=== PATIENT | female | born 1955 | race Caucasian/White ===

== ENCOUNTER → 2016-12-24 | Outpatient (CLI) | payer OTHER ==
--- NOTE | 2016-12-24 12:04 | WWHP ---
DATE OF SERVICE: 12/24/2016 CHIEF COMPLAINT: The patient is here for her routine gynecologic exam and mammogram. HPI: This is a 61-year-old G3, P3 with an LMP of 1998 who is status post vaginal hysterectomy for benign reasons. The patient is without gynecologic complaints. She states she has noticed a slight bulging area above the xiphoid process and epigastric region. She states it is not painful. She has noticed it for about 1 to 2 months. She states it can be roundish and looks like a small pear when she looks in the mirror when she is upright. She is otherwise without complaints. PAST MEDICAL HISTORY: Chronic hypertension, irritable bowel syndrome, gastroesophageal reflux disease, hiatal hernia, osteoporosis, status post 5 years of Fosamax. She is also seen for chronic neck and back problems. Dr. Velázquez is her primary care physician. MEDICATIONS: 1. [place] 10/325 mg q.i.d. p.r.n. 2. Norvasc 5 mg daily. 3. Bentyl 10 mg b.i.d. 4. Prevacid 15 mg daily. 5. Calcium supplement with vitamin D 600 mg b.i.d. 6. Hydrochlorothiazide 50 mg daily. 7. Antivert 25 mg t.i.d. p.r.n. 8. Atorvastatin 20 mg daily. 9. Anaprox 275 mg 2 p.r.n. Allergies to PENICILLIN, MOTRIN and BACTRIM; all of which caused rashes. Past surgical and TURNER OFF histories are unchanged from the 2014 H&P. FAMILY HISTORY: Father had throat, lung and brain cancer. Brother was diagnosed with lung cancer. Mother had diabetes, CVA, RI and skin cancer. Grandmother had heart disease. REVIEW OF SYSTEMS: Weight has been stable. She denies respiratory, cardiac, or GI problems. PHYSICAL EXAM: Blood pressure 125/79. Height 5 feet 5 inches. Weight 167 pounds. Temperature 98.3, pulse 90. This is a well-developed, well-nourished white female who is alert and oriented x3 in no acute distress. HEENT is within normal limits. NECK: Supple without mass or thyromegaly. CHEST AND LUNGS: Clear to auscultation. HEART: Regular rate and rhythm. CHEST AND LUNGS: Clear to auscultation. There is palpable invisible lipoma at the area of the xiphoid process. This is soft, smooth and regular. There does not seem to be any masses below pushing this tissue upward. This measures approximately 5 x 4 cm. HEART: Regular rate and rhythm. Breasts are without mass or discharge. Axillary exam is negative for adenopathy. BACK: Negative for CVA tenderness. ABDOMEN: Soft, nontender, without palpable masses. The lipoma is noted as above. PELVIC EXAM: External genitalia reveals mild to moderate atrophy without lesions. Vagina reveals mild to moderate atrophy without lesions. There is no evidence of prolapse. Bimanual exam is negative for mass or tenderness. Rectovaginal exam is negative for mass or tenderness and is negative for occult blood. EXTREMITIES: Nontender. IMPRESSION: 1. A 61-year-old menopausal female, status post vaginal hysterectomy for benign reasons. 2. Benign-appearing lipoma in the epigastric region over the area of the xiphoid process. 3. History of osteoporosis, status post Fosamax use 5 or more years. PLAN: 1. Pap smears have been discontinued. 2. Self breast examination was discussed. 3. Mammogram will be done today. 4. Colonoscopy was recommended since she believes she was told by Dr. Al to have it done after 5 years ago so she is due for this. 5. Osteoporosis management was discussed. We will plan on redoing the bone density testing and an order slip was given to patient for this. 6. She will return in one year.
--- NOTE | 2016-12-25 11:34 | MM ---
Reason for exam: screening (asymptomatic). Last mammogram was performed 2 years and 2 months ago. History: Patient is postmenopausal. Benign US right guided mammotome of the right breast, May 09, 2008. Physical Findings: A clinical breast exam by your physician is recommended on an annual basis and results should be correlated with mammographic findings. MG Screening Mammo w CAD Bilateral CC and MLO view(s) were taken. Prior study comparison: October 11, 2014, bilateral MG screening mammo w CAD. April 18, 2009, bilateral digital screening mammogram. There are scattered fibroglandular densities. No significant changes when compared with prior studies. ASSESSMENT: Negative, BI-RAD 1 RECOMMENDATION: Routine screening mammogram of both breasts in 1 year.
== END | disposition home or self-care (01) ==
LOC: WWCWWP 09:49
PROVIDERS: ATTEND Obstetrics & Gynecology
DX: Z12.31 Encounter for screening mammogram for malignant neoplasm of breast (principal)

== ENCOUNTER → 2016-12-29 | Outpatient (CLI) | payer OTHER ==
--- NOTE | 2016-12-29 12:14 | BD ---
EXAMINATION TYPE: MG DEXA axial skeleton. DATE OF EXAM: 12/29/2016 9:33 AM COMPARISON: 11.06.2014 CLINICAL HISTORY: z78.0 post menopausal Height: 63.5 Weight: 166 FRAX RISK QUESTIONS: Alcohol (3 or more units per day): NO Family History (Parent hip fracture): NO Glucocorticoids (More than 3mos): NO (Ex: prednisone, prednisolone, methylprednisolone, dexamethasone, and hydrocortisone). History of Fracture in Adulthood: NO Secondary Osteoporosis: NO 1. Type 1 Diabetes: NO 2. Hyperthyroidism: NO 3. Menopause before 45: AT AGE 46 4. Malnutrition: NO 5. Chronic liver disease: NO Rheumatoid Arthritis: NO Current Tobacco Use: YES RISK FACTORS HISTORY OF: Surgery to Spine LUMBAR FUSION AND SCRAPING OF BONE When: 4 YRS AGO Other Fractures since Age 50: NOTHING OVER 50 YRS OLD Family History of Osteoporosis: NONE KNOWN Smoke tobacco: YES, 1 PAC DAILY Drink Alcohol: NO Active: NO Diet low in dairy products/other sources of calcium: YES Postmenopausal woman: HYST AT AGE 46 YRS OLD Adrenal Insufficiency: NO MEDICATIONS: Osteoporosis Medications: STOPPED FOSAMAX 2 YRS AGO Additional Medications: BP MEDS, CALCIUM WITH D Additional History: NONE TO NOTE EXAM MEASUREMENTS: Bone mineral densitometry was performed using the [employer] System. SPINE NOT DONE.....SURGERY TO LUMBAR SPINE 4 YRS AGO Bone mineral density about the R hip (g/cm2): 0.872 Bone mineral density about the L hip (g/cm2): 0.827 T Score values are as follows: -----R Neck: -1.2 -----L Neck: -1.5 -----R Intertrochanter: -1.8 -----L Intertrochanter: -1.3 Bone mineral density has: Decreased -0.8% since study of: 11.06.2014 FRAX %'S: FOR MAJOR OSTEOPOROTIC FX: 8.2%....... FOR HIP FX: 1.2%.......PROBABILITY OF FX IN 10 YRS TIME IMPRESSION: Osteopenia (T Score between -2.5 and -1 as noted by T score values There is slightly increased risk of fracture and the patient may be considered for treatment. Re-Screen 1-2 years. FOR BOTH OF HER HIPS NOTE: T-SCORE=SD OF THE YOUNG ADULT MEAN.
== END | disposition home or self-care (01) ==
LOC: RADBDWWP 09:06
PROVIDERS: ATTEND Obstetrics & Gynecology
DX: M85.852 Other specified disorders of bone density and structure, left thigh (principal); M85.851 Other specified disorders of bone density and structure, right thigh; Z78.0 Asymptomatic menopausal state
CPT/HCPCS: 77080

== ENCOUNTER 2017-03-24 07:21 | Day surgery (SDC) | payer OTHER ==
[2017-03-20 14:32] VITALS: BMI 29.2
[~2017-03-24 07:21] MED LIST: LACTATED RINGERS 1,000 ML IV SCH; LIDOCAINE 1% 20 ML VIAL (10MG/ML) FOR IV START INTRADERMA PRN
[2017-03-24 07:45] VITALS: TEMP 97.8
[2017-03-24] MEDS ORDERED: PROPOFOL 10 MG/ML 20 ML VIAL IV ONE (08:08)
[2017-03-24] MEDS ORDERED: LIDOCAINE 1% INJ 10MG/ML (20 ML MDV) ONE (08:08)
--- NOTE | 2017-03-24 08:40 | P.OP ---
Date of Procedure: 03/24/17 Preoperative Diagnosis: Prior history: Polyp, history of GERD Postoperative Diagnosis: Tortuous sigmoid colon, diverticuli, probable hyperplastic rectal polyp, biopsy obtained, internal hemorrhoids Procedure(s) Performed: Colonoscopy Anesthesia: MAC Surgeon: Kristen Al Estimated Blood Loss (ml): 0 IV fluids (ml): 300 Pathology: other (rectal biopsy) Condition: stable Disposition: PACU Indications for Procedure: prior history of colon polyp Operative Findings: Internal hemorrhoids, tortuous sigmoid colon, sigmoid diverticuli, probable hyperplastic changes in rectum cold biopsy obtained Description of Procedure: Patient was taken to the endoscopy suite and following sedation rectal exam was performed. Patient was noted to have good sphincter tone no masses. Colonoscope was passed through the anus into the rectum. At approximately 20 cm there was sharp angulation and with careful manipulation we were able to pass the scope beyond this point. The patient was noted to have moderate to extensive sigmoid diverticuli. The scope was advanced to the splenic flexure through the transverse colon hepatic flexure right colon down to the area of the cecum. Approximately 6 minutes were taken to withdraw the scope from the cecum to the rectum. No mucosal lesions of concern were noted in the cecum or right colon. No mucosal lesions of concern were noted in the transverse colon. In the sigmoid and left colon moderate to extensive diverticuli were identified. The scope was brought down into the rectum where it appeared to be some hyperplastic changes were noted in the cold biopsy was obtained. No polypoid lesions of concern were identified. The scope was retroflexed in the rectum and internal hemorrhoids were identified Impression/plan: 1. Tortuous sigmoid colon 2. Sigmoid diverticuli 3. Internal hemorrhoids 4. Probable hyperplastic changes in the rectum biopsy obtained Plan: Conservative management of diverticuli and internal hemorrhoids 2. Await results of biopsy of polyp depending on this will determine scope is to be repeated.
--- NOTE | 2017-03-24 08:40 | P.DS ---
Providers Attending physician: Kristen Al Primary care physician: Kristina Velázquez Plan - Discharge Summary Discharge Medication List Atorvastatin [Lipitor] 20 mg PO HS 11/29/15 [History] Calcium Carbonate/Vitamin D3 [Calcium 600 + Vit D Tablet] 1 tab PO DAILY [History] Dicyclomine [Bentyl] 10 mg PO QID PRN 11/29/15 [History] HYDROcodone/APAP 10-325MG [[place] 10-325] 1 tab PO Q6H PRN 11/29/15 [History] Lansoprazole [Prevacid] 15 mg PO DAILY 11/29/15 [History] Potassium Chloride [Klor-Con 20] 20 meq PO DAILY 11/29/15 [History] amLODIPine [Norvasc] 5 mg PO DAILY 11/29/15 [History] Hydrochlorothiazide [Hydrodiuril] 50 mg PO DAILY 04/30/16 [History] Meclizine [Antivert] 25 mg PO TID PRN #15 tab 05/06/16 [Rx] Butalb/APAP/Caff 50-325-40Mg [Fioricet 50-325-40] 1 each PO BID PRN 03/20/17 [ History] Multivitamins, Thera [Multivitamin (formulary)] 1 each PO DAILY 03/20/17 [ History] Naproxen Sodium [Anaprox DS] 550 mg PO Q12HR PRN 03/20/17 [History] Follow up Appointment(s)/Referral(s): Kristen Al MD [STAFF PHYSICIAN] - 1 Week Activity/Diet/Wound Care/Special Instructions: diverticular diet Discharge Disposition: HOME SELF-CARE
--- NOTE | 2017-03-24 08:59 | P.PCN ---
Date of Procedure: 03/24/17 Procedure(s) Performed: Procedure: Esophagogastroduodenoscopy and biopsy. Preoperative diagnosis: Chronic reflux symptoms and epigastric pain. Postoperative diagnosis: 1. Small sliding hiatal hernia with no obvious esophagitis or complicated reflux disease. 2. Mild gastritis and duodenitis. Preparation sedation: Were provided by anesthesia. Brief clinical history: The patient is 61-year-old female who was scheduled for this evaluation because of chronic reflux symptoms and epigastric pain. The patient had a colonoscopy today with Dr. Al and this evaluation was requested at the same time. Procedure: With the patient on her left lateral decubitus position and after informed consent and adequate sedation, I passed the Olympus-GIF 160 video upper endoscope through the cricopharyngeus down the esophagus. GE junction was around 38 cm from the incisors and there was a small sliding hiatal hernia. The esophagus did not show any obvious erosions, ulcers, strictures or Álvarez 's esophagus. The endoscope was then passed into the stomach which was insufflated with air and inspected in detail including the retroflex view in the cardia. There was some minimal mottling and erythema in the antrum but no ulcers or erosions. Pyloric channel, duodenal bulb, post bulbar area and descending duodenum showed minimal erythema. I obtained biopsies from the duodenum, antrum and esophagus then the endoscope was withdrawn. The patient tolerated the procedure well. Plan: The patient was reassured. Will await biopsy results and make further plans based on her course and biopsy results. She will follow-up with you as planned.
[2017-03-24 09:27] VITALS: BP 115/73; PULSE 76; RESP 18
== END 2017-03-24 09:55 | disposition home or self-care (01) ==
LOC: ORWHC2ENDO 07:21
PROVIDERS: ATTEND Surgery
DX: Z12.11 Encounter for screening for malignant neoplasm of colon (principal); Z86.010 Personal history of colon polyps; K64.8 Other hemorrhoids; Q43.8 Other specified congenital malformations of intestine; K57.30 Diverticulosis of large intestine without perforation or abscess without bleeding; K62.1 Rectal polyp; K29.50 Unspecified chronic gastritis without bleeding; K29.80 Duodenitis without bleeding; K44.9 Diaphragmatic hernia without obstruction or gangrene; K21.9 Gastro-esophageal reflux disease without esophagitis; I10 Essential (primary) hypertension; E78.5 Hyperlipidemia, unspecified; Z79.891 Long term (current) use of opiate analgesic; Z79.899 Other long term (current) drug therapy; Z88.1 Allergy status to other antibiotic agents; Z88.0 Allergy status to penicillin; Z88.8 Allergy status to other drugs, medicaments and biological substances; Z88.2 Allergy status to sulfonamides; F17.200 Nicotine dependence, unspecified, uncomplicated
CPT/HCPCS: 88305; 88342; 45380; 43239; J2001; J2704

== ENCOUNTER → 2018-03-03 | Outpatient (CLI) | payer OTHER | END | disposition home or self-care (01) | LOC: LABWHC1 11:44 | PROVIDERS: ATTEND Obstetrics & Gynecology | DX: Z53.9 Procedure and treatment not carried out, unspecified reason (principal) ==

== ENCOUNTER → 2018-07-23 | Outpatient (CLI) | payer OTHER ==
[2018-07-23 11:12] LABS: Basophils # (A) 0.1 k/uL (0-0.2); Basophils % (A) 1 %; Eosinophils # (A) 0.3 k/uL (0-0.7); Eosinophils % (A) 4 %; HCT 45.5 % (34.0-46.0); HGB 14.1 gm/dL (11.4-16.0); Lymphocytes # (A) 2.2 k/uL (1.0-4.8); Lymphocytes % (A) 31 %; MCH 26.5 pg (25.0-35.0); MCHC 31.1 g/dL (31.0-37.0); MCV 85.2 fL (80.0-100.0); Mean Platelet Volume 6.4; Monocytes # (A) 0.3 k/uL (0-1.0); Monocytes % (A) 5 %; Neutrophils # (A) 4.1 k/uL (1.3-7.7); Neutrophils % (A) 58 %; Platelet Count 252 k/uL (150-450); RBC 5.34 m/uL (3.80-5.40); RDW 13.7 % (11.5-15.5)
[2018-07-23 11:15] LABS: Appearance,Urine Cloudy (Clear); Bilirubin,Urine Negative (Negative); Blood,Urine Negative (Negative); Color,Urine Yellow; Glucose,Urine (UA) Negative (Negative); Ketones,Urine Negative (Negative); Leukocyte Esterase,Urine Trace (Negative); Mucus,Urine Many /hpf; Nitrite,Urine Negative (Negative); Protein,Urine Trace (Negative); RBC,Urine <1 /hpf (0-5); Specific Gravity,Urine 1.013 (1.001-1.035); Squamous Epithelial Cell,Urine <1 /hpf (0-4); Urobilinogen,Urine <2.0 mg/dL (<2.0); WBC,Urine 2 /hpf (0-5)
[2018-07-23 11:35] LABS: ALT 42 U/L (9-52); AST 28 U/L (14-36); Albumin 4.4 g/dL (3.5-5.0); Alkaline Phosphatase 69 U/L (38-126); Amylase 62 U/L (30-110); Anion Gap 8 mmol/L; Blood Urea Nitrogen 14 mg/dL (7-17); C Reactive Protein 5.6 mg/L (<10.0); Calcium 10.1 mg/dL (8.4-10.2); Carbon Dioxide 29 mmol/L (22-30); Chloride 105 mmol/L (98-107); Cholesterol 261 mg/dL (<200); Creatine Kinase 35 U/L (30-135); Glucose 97 mg/dL (74-99); HDL Cholesterol 54 mg/dL (40-60); LDL Cholesterol,Calculated 169 mg/dL (0-99); Lipase 76 U/L (23-300); Potassium 3.5 mmol/L (3.5-5.1); Sodium 142 mmol/L (137-145); Total Bilirubin 0.5 mg/dL (0.2-1.3); Total Protein 7.2 g/dL (6.3-8.2); Triglycerides 188 mg/dL (<150); Uric Acid 4.5 mg/dL (3.7-7.4)
[2018-07-23 16:27] LABS: Rheumatoid Factor 9 IU/mL (0-15)
[2018-07-23 16:36] LABS: Folate, Serum >24.0 ng/mL
[2018-07-23 19:43] LABS: Hemoglobin A1C 5.9 % (4.0-6.0)
== END | disposition home or self-care (01) ==
LOC: LABWHC1 10:50
PROVIDERS: ATTEND Family Medicine
DX: R10.30 Lower abdominal pain, unspecified (principal); M25.472 Effusion, left ankle; R53.83 Other fatigue; Z79.899 Other long term (current) drug therapy
CPT/HCPCS: 36415; 80053; 80061; 81001; 82150; 82550; 82607; 82746; 83036; 83690; 83880; 84443; 84550; 85025; 86038; 86140; 86431

== ENCOUNTER → 2018-08-06 | Outpatient (CLI) | payer OTHER ==
--- NOTE | 2018-08-06 15:45 | US ---
EXAMINATION TYPE: US thyroid st tissue head/neck DATE OF EXAM: 08/06/2018 COMPARISON: NONE CLINICAL HISTORY: Localized swelling, mass and lump, neck. Difficulty swallowing GLAND SIZE: Right Lobe: 4.7 x 2.0 x 1.9 cm Overall Parenchyma: homogenous Left Lobe: 4.4 x 1.9 x 1.8 cm Overall Parenchyma: homogeneous Isthmus Thickness: 0.3 cm NODULES RIGHT: # of nodules measured on right: 1. 0.7 X 0.5 x 0.7 cm hypoechoic mixed nodule at the upper pole with well-defined margins. This nod ule is wider than tall and shows intranodular vascularity. Prior size: no prior 2. 0.9 X 0.6 x 0.6 cm hypoechoic mixed nodule at the mid pole with well-defined margins; . This nod ule is wider than tall and shows intranodular vascularity. Prior size: no prior LEFT: # of nodules measured on left: 1. 0.6 X 0.6 x 0.5 cm hypoechoic solid nodule at the mid pole with well-defined margins; . This no dule is taller than wide and shows intranodular vascularity. Prior size: no prior ISTHMUS: # of nodules measured in the isthmus: 0 Bilateral neck scanned, no evidence of lymphadenopathy. IMPRESSION: 1. Bilateral subcentimeter thyroid nodules
== END | disposition home or self-care (01) ==
LOC: RADCTMAIN 14:34
PROVIDERS: ATTEND Family Medicine
DX: E04.2 Nontoxic multinodular goiter (principal)
CPT/HCPCS: 76536

== ENCOUNTER → 2018-08-06 | Outpatient (CLI) | payer OTHER ==
--- NOTE | 2018-08-07 23:37 | CT ---
EXAMINATION TYPE: CT abdomen pelvis wo con DATE OF EXAM: 08/06/2018 HISTORY: right sided abdominal pain and nausea X 2-[address] DLP: 778 mGycm. Automated Exposure Control for Dose Reduction was Utilized. TECHNIQUE: CT scan of the abdomen and pelvis is performed without oral or IV contrast. COMPARISON: CT abdomen and pelvis November 29, 2015 FINDINGS: Within the limitations of a non-contrast study, the following observations are made. LUNG BASES: There is bibasilar linear scarring anteriorly in both bases redemonstrated and centrally in the left lung base noted. LIVER/GB: Cholecystectomy clips are redemonstrated. Liver is diffusely low-density consistent with fa tty infiltration. PANCREAS: No significant abnormality is seen. SPLEEN: No significant abnormality is seen. ADRENALS: No significant abnormality is seen. KIDNEYS: There is stable 7 mm calculus in left kidney centrally midpole level coronal image 57. There is simple appearing a 1.5 cm cyst redemonstrated posteriorly upper to midpole level right kidney axi al image 35 BOWEL: The oral contrast reaches the level of the terminal ileum making evaluation of the colon Subop timal. There is no suspicious small or large bowel dilatation. Normal-appearing appendix is seen from cecum. Sigmoid colonic diverticula are present. There is no CT evidence for acute diverticulitis. GENITAL ORGANS: Uterus is surgically absent markedly atrophic. LYMPH NODES: No greater than 1cm abdominal or pelvic lymph nodes are appreciated. OSSEOUS STRUCTURES: Dextroconvex scoliosis is redemonstrated. Moderate to advanced disc space narrowi ng with vacuum disc phenomenon and spurring is redemonstrated at left L1-L2 and L2-L3 levels. OTHER: No significant additional abnormality is seen. IMPRESSION: No suspicious new or acute finding is seen to compress patient's symptoms.
== END ==
LOC: RADCTMAIN 14:27
PROVIDERS: ATTEND Family Medicine
DX: R10.30 Lower abdominal pain, unspecified (principal)
CPT/HCPCS: 74176

== ENCOUNTER → 2018-08-12 | Outpatient (CLI) | payer OTHER ==
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
== END ==
LOC: RADMRIMAIN 17:39
PROVIDERS: ATTEND Family Medicine
DX: M48.02 Spinal stenosis, cervical region (principal); M99.72 Connective tissue and disc stenosis of intervertebral foramina of thoracic region; M43.12 Spondylolisthesis, cervical region; M50.123 Cervical disc disorder at C6-C7 level with radiculopathy; M47.22 Other spondylosis with radiculopathy, cervical region; M41.83 Other forms of scoliosis, cervicothoracic region; Z98.890 Other specified postprocedural states
CPT/HCPCS: 72156; A9581

== ENCOUNTER → 2018-08-19 | Outpatient (CLI) | payer OTHER ==
--- NOTE | 2018-08-19 20:10 | CT ---
EXAMINATION TYPE: CT abdomen pelvis w con DATE OF EXAM: 08/19/2018 COMPARISON: 08/06/2018 HISTORY: Right lower quadrant pain x couple months. CT DLP: 1390 mGycm Automated exposure control for dose reduction was used. TECHNIQUE: Helical acquisition of images was performed from the lung bases through the pelvis. CONTRAST: Performed with Oral Contrast and with IV Contrast, patient injected with 100 mL of Isovue 300. FINDINGS: Lung bases are clear. There is no pleural effusion. Heart size is normal. There is no pleural effusio n. Liver spleen pancreas appear normal. There are clips from cholecystectomy. Bile ducts are not dilated . There are small hiatal hernia. The remainder of the stomach is normal. There is no adrenal mass. There is 8 mm calcification medial left kidney. There is 2 cm cortical cyst posterior right kidney. There is no hydronephrosis. Ureters are not dilated. There is no retroperito sebastian adenopathy. Abdominal aorta is atheromatous. There is no mesenteric edema or adenopathy. There are multiple sigmoid diverticula. I see no sign of diverticulitis. Bladder distends smoothly. T here is no inguinal hernia or adenopathy. There is small umbilical hernia that contains fat. Appendix appears normal. Small bowel appears normal. There is narrowing of the L1-L2 3 disc spaces with spurr ing. IMPRESSION: NONOBSTRUCTING LEFT RENAL CALCULUS. SIGMOID DIVERTICULOSIS WITHOUT DIVERTICULITIS. NO CHANGE COMPARED TO OLD EXAM.
== END | disposition home or self-care (01) ==
LOC: RADCTMAIN 17:56
PROVIDERS: ATTEND Family Medicine
DX: N20.0 Calculus of kidney (principal); K57.30 Diverticulosis of large intestine without perforation or abscess without bleeding
CPT/HCPCS: 74177; Q9967

== ENCOUNTER → 2019-03-08 | Outpatient (CLI) | payer OTHER ==
--- NOTE | 2019-03-09 11:47 | US ---
EXAMINATION TYPE: US thyroid st tissue head/neck DATE OF EXAM: 03/08/2019 COMPARISON: 08/06/2018 CLINICAL HISTORY: E04.2 NONTOXIC MULTINODULAR GOITER. Nontoxic multinodular goiter. GLAND SIZE: Right Lobe: 5.4 x 2.2 x 1.9 cm Overall Parenchyma: homogenous Left Lobe: 4.8 x 1.9 x 1.9 cm Overall Parenchyma: homogeneous Isthmus Thickness: 0.4 cm NODULES RIGHT: # of nodules measured on right: 2 1. 0.9 X 0.7 x 0.7 cm hypoechoic mixed nodule at the mid pole with well-defined margins. This nodu le is as tall as it is wide and shows intranodular vascularity. Prior size: 0.9 x 0.6 x 0.6 cm 2. 0.8 X 0.7 x 0.5 cm hypoechoic mixed nodule at the upper pole with well-defined margins. This nod ule is wider than tall and shows intranodular vascularity. Prior size: 0.7 x 0.5 x 0.7 cm LEFT: # of nodules measured on left: 1 1. 0.6 X 0.5 x 0.5 cm hypoechoic mixed nodule at the mid pole with well-defined margins. This nodu le is as tall as it is wide and shows intranodular vascularity. Prior size: 0.6 x 0.6 x 0.5 cm ISTHMUS: # of nodules measured in the isthmus: 0 Bilateral neck scanned, no evidence of lymphadenopathy. IMPRESSION: 1. Bilateral subcentimeter nodules, stable.
== END ==
LOC: RADUSMAIN 17:40
PROVIDERS: ATTEND Internal Medicine Endocrinology, Diabetes & Metabolism
DX: E04.2 Nontoxic multinodular goiter (principal)
CPT/HCPCS: 76536

== ENCOUNTER → 2019-06-08 | Outpatient (CLI) | payer OTHER ==
[2019-06-08 10:40] VITALS: BP 145/82; PULSE 94; RESP 18; TEMP 98.3; BMI 30.7
--- NOTE | 2019-06-08 11:29 | P.HPOB ---
History of Present Illness H&P Date: 06/08/19 Chief Complaint: The patient is here for her routine gynecologic exam and ma mmogram. This is a 63-year-old G3 PIII with an an LMP of 1998. The patient status post vaginal hysterectomy for benign reasons. The patient has been experiencing brief intermittent low abdominal and pelvic pains during the past 6 months. Occasionally they can be every other day but then she may not have it for several days. When it occurs it can last for a second and then be gone. When she does experience the pain it can be 10 out of 10, but then be 0/10 within seconds. Currently she denies any pain at this time. The pain can be on both sides but is typically more often noticed on the right side. The pains can occur at any time including when she is sitting or walking. It does not seem to be associated with a full bladder or the need to have a bowel movement. Review of Systems The patient has gained 9 pounds over the last year. She denies respiratory, cardiac, or G.I. problems. Past Medical History Past Medical History: GERD/Reflux, Hyperlipidemia, Hypertension, Neurologic Disorder Additional Past Medical History / Comment(s): BACK PAIN. IBS, Migraine, vertigo, osteopenia(s/p 5yrs fosamax use for osteoporosis). 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 History of Any Multi-Drug Resistant Organisms: None Reported Past Surgical History: Back Surgery, Cholecystectomy, Hysterectomy, Tonsillectomy, Tubal Ligation Additional Past Surgical History / Comment(s): NECK SURGERY, CARPAL TUNNEL. Vaginal hysterectomy in 1998. Colonoscopy 2017(2nd, next after 5yrs). Past Anesthesia/Blood Transfusion Reactions: Previous Problems w/ Anesthesia, Motion Sickness Additional Past Anesthesia/Blood Transfusion Reaction / Comment(s): SLOW TO WAKE UP AT TIMES Past Psychological History: No Psychological Hx Reported Smoking Status: Current every day smoker (1 pack per day) Past Alcohol Use History: None Reported Additional Past Alcohol Use History / Comment(s): SMOKES 1 PPD SINCE 1976 Past Drug Use History: None Reported Additional History: She's been since 1984 and is infrequently sexually active. She is disabled because of back problems. - Past Family History Brother(s) Family Medical History: Cancer Additional Family Medical History / Comment(s): Lung cancer. Father Family Medical History: Cancer Additional Family Medical History / Comment(s): Throat, lung, and brain cancer. Mother Family Medical History: Cancer, CVA/TIA, Myocardial Infarction ([place]) Additional Family Medical History / Comment(s): Skin cancer. Medications and Allergies Home Medications Medication Instructions Recorded Confirmed Type Calcium Carbonate/Vitamin D3 1 tab PO DAILY 11/29/15 06/08/19 History [Calcium 600 + Vit D Tablet] Dicyclomine [Bentyl] 20 mg PO TID 11/29/15 06/08/19 History HYDROcodone/APAP 10-325MG [[place] 1 tab PO Q6H PRN 11/29/15 06/08/19 History 10-325] Lansoprazole [Prevacid] 15 mg PO DAILY 11/29/15 06/08/19 History Potassium Chloride [Klor-Con 20] 20 meq PO DAILY 11/29/15 06/08/19 History amLODIPine [Norvasc] 5 mg PO DAILY 11/29/15 06/08/19 History Hydrochlorothiazide [Hydrodiuril] 50 mg PO DAILY 04/30/16 06/08/19 History Butalb/APAP/Caff 50-325-40Mg 1 each PO BID PRN 03/20/17 06/08/19 History [Fioricet 50-325-40] Multivitamins, Thera [Multivitamin 1 each PO DAILY 03/20/17 06/08/19 History (formulary)] Naproxen Sodium [Anaprox DS] 550 mg PO Q12HR PRN 03/20/17 06/08/19 History Meclizine [Antivert] 25 mg PO BID 06/08/19 06/08/19 History Allergies Allergy/AdvReac Type Severity Reaction Status Date / Time ibuprofen [From Motrin] Allergy Rash/Hives Verified 06/08/19 10:40 Penicillins Allergy Rash/Hives Verified 06/08/19 10:40 sulfamethoxazole Allergy Rash/Hives Verified 06/08/19 10:40 [From Bactrim] trimethoprim [From Bactrim] Allergy Rash/Hives Verified 06/08/19 10:40 Exam Vital Signs Temp Pulse Resp BP Pulse Ox 06/08/19 10:34 98.3 F 94 18 145/82 96 Intake and Output 06/07/19 06/08/19 06/08/19 22:59 06:59 14:59 Other: Weight 81.193 kg Height 5'4", weight 179 pounds, BMI 30.7. This is a well-developed well-nourished white female who is alert and oriented times 3 in no acute distress. HEENT: Within normal limits. NECK: Supple without mass or thyromegaly. CHEST AND LUNGS: Clear to auscultation. HEART: Regular rate and rhythm. BREASTS: Are without mass or discharge. AXILLARY EXAM: Negative for adenopathy. BACK: Negative for CVA tenderness. ABDOMEN: Soft, nontender, without palpable masses. PELVIC EXAM: External genitalia appears normal with mild atrophy. Vagina appears normal with mild atrophy. There is no evidence of prolapse. Bimanual examination is negative for mass. There is intermittent mild bilateral pelvic tenderness that seems to re-create some of the sharp pains that she is been experiencing. RECTAL EXAM: Rectovaginal exam is negative for mass or tenderness and is negative for occult blood. EXTREMITIES: Nontender. IMPRESSION: 1. 63-year-old menopausal female status post vaginal hysterectomy for benign reasons with intermittent brief bilateral pelvic and lower abdominal pains during the past 6 months. Differential diagnosis will include pelvic adhesions, G.I. or intestinal pains, and less likely ovarian neoplasm. 2. Mild intermittent pelvic tenderness on exam today. PLAN: 1. Pap smears have been discontinued. 2. Self breast awareness was discussed with the patient. 3. Screening mammogram will be done today. 4. The patient will be scheduled for a pelvic ultrasound. She will also try to see if she can associate the intermittent brief pains with any type of activity or condition. 5. Osteoporosis prevention was discussed. I have stressed the importance of adequate calcium, vitamin D and regular exercise. Recommended amounts of calcium and vitamin D were also discussed. 6. She was advised to return in one year for her annual well woman exam and PRN.
--- NOTE | 2019-06-09 11:41 | MM ---
Reason for exam: screening (asymptomatic). Last mammogram was performed 1 year and 3 months ago. History: Patient is postmenopausal. Benign US right guided mammotome of the right breast, May 09, 2008. Physical Findings: A clinical breast exam by your physician is recommended on an annual basis and results should be correlated with mammographic findings. MG Screening Mammo w CAD Bilateral CC and MLO view(s) were taken. Prior study comparison: March 02, 2018, bilateral MG screening mammo w CAD. December 24, 2016, bilateral MG screening mammo w CAD. There are scattered fibroglandular densities. Finding: There are typically benign dystrophic, grouped/clustered calcifications in the upper outer quadrant of the left breast. Previous mammotome biopsy in the right breast. There is no discrete abnormality. ASSESSMENT: Benign, BI-RAD 2 RECOMMENDATION: Routine screening mammogram of both breasts in 1 year.
== END | disposition home or self-care (01) ==
LOC: WWCWWP 10:24
PROVIDERS: ATTEND Obstetrics & Gynecology
DX: Z12.31 Encounter for screening mammogram for malignant neoplasm of breast (principal)
CPT/HCPCS: 77067

== ENCOUNTER → 2019-06-22 | Outpatient (CLI) | payer OTHER ==
--- NOTE | 2019-06-22 14:38 | US ---
EXAMINATION TYPE: US pelvis complete transvag DATE OF EXAM: 06/22/2019 COMPARISON: NONE CLINICAL HISTORY: R10.2 PELVIC PAIN,R68.89 BL TENDERNESS. Pain partial hysterectomy. TECHNIQUE: Transvaginal (TV) and Transabdominal (TA) . Transabdominal sonographic images of the pel vis were acquired. Transvaginal sonographic images were medically necessary to better assess the fol lowing anatomy: Ovaries EXAM MEASUREMENTS: Uterus: Surgically absent cm Endometrial Stripe: Surgically absent cm Right Ovary: Obscured by bowel gas. Left Ovary: Obscured by bowel gas. 1. Uterus: Surgically absent 2. Endometrium: Surgically absent 3. Right Ovary: Obscured by overlying bowel gas 4. Left Ovary: Obscured by overlying bowel gas 5. Bilateral Adnexa: wnl IMPRESSION: Uterus is surgically absent. The bilateral ovaries are obscured by overlying bowel gas on the examination and cannot be evaluated.
--- NOTE | 2019-06-28 17:18 | P.PN ---
Progress Note - Text Progress Note Date: 06/28/19 OUTPATIENT FOLLOW-UP NOTE TEST(S)/RESULTS: pelvic ultrasound done on 06/22/2019 is consistent with her previous hysterectomy with no evidence of adnexal mass. METHOD OF NOTIFICATION: a message with this result was left on the patient's voicemail. PATIENT COMMENTS: DIAGNOSIS: no evidence of adnexal mass by ultrasound. DISCUSSION: I do not believe her intermittent abdominal pains are gynecologic in nature. PLAN: she will return in one year and PRN.
== END | disposition home or self-care (01) ==
LOC: RADUSWWP 13:56
PROVIDERS: ATTEND Obstetrics & Gynecology
DX: R10.2 Pelvic and perineal pain (principal); Z90.710 Acquired absence of both cervix and uterus
CPT/HCPCS: 76830; 76856

== ENCOUNTER → 2019-09-19 | Outpatient (CLI) | payer OTHER ==
--- NOTE | 2019-09-19 12:06 | XR ---
EXAMINATION TYPE: XR chest 2V DATE OF EXAM: 09/19/2019 COMPARISON: 07/30/2016 TECHNIQUE: PA and lateral views submitted. HISTORY: Chest pain FINDINGS: The lungs are clear and there is no pneumothorax, pleural effusion, or focal pneumonia. Atheroscler otic change of the aorta. No overt failure. Degenerative change of the spine. Surgical clips in the a bdomen. IMPRESSION: 1. No acute process.
== END | disposition home or self-care (01) ==
LOC: RADXRMAIN 11:27
PROVIDERS: ATTEND Family Medicine
DX: R07.9 Chest pain, unspecified (principal)
CPT/HCPCS: 71046

== ENCOUNTER → 2019-09-26 | Outpatient (CLI) | payer OTHER ==
--- NOTE | 2019-09-26 08:26 | US ---
EXAMINATION TYPE: US carotid duplex BILAT DATE OF EXAM: 09/26/2019 COMPARISON: NONE CLINICAL HISTORY: R09.89 Carotid Bruit. EXAM MEASUREMENTS: RIGHT: Peak Systolic Velocity (PSV) cm/sec ----- Right CCA: 72.1 ----- Right ICA: 88.5 ----- Right ECA: 134.6 ICA/CCA ratio: 1.2 RIGHT: End Diastole cm/sec ----- Right CCA: 19.3 ----- Right ICA: 31.4 ----- Right ECA: 34.0 LEFT: Peak Systolic Velocity (PSV) cm/sec ----- Left CCA: 90.7 ----- Left ICA: 74.4 ----- Left ECA: 110.3 ICA/CCA ratio: 0.8 LEFT: End Diastole cm/sec ----- Left CCA: 29.9 ----- Left ICA: 26.2 ----- Left ECA: 32.1 VERTEBRALS (direction of flow): Right Vertebral: Antegrade Left Vertebral: Antegrade Rhythm: Normal Mild plaque with no significant velocity increases. IMPRESSION: Mild degree of grayscale atheromatous plaquing with no sonographically evident hemodynam ically significant stenosis within either visualized carotid arterial system. Criteria for Assigning % of Stenosis / Diameter reduction (Estimation based on the indirect measurements of the internal carotid artery velocities (ICA PSV). 1. Normal (no stenosis)=ICA PSV < 125 cm/s: ratio < 2.0: ICA EDV<40 cm/s. 2. Less than 50% stenosis=ICA PSV < 125 cm/s: ratio < 2.0: ICA EDV<40 cm/s. 3. 50 to 69% stenosis=ICA PSV of 125 to 230 cm/s: ration 2.0 ? 4.0: ICA EDV 40-100 cm/s. 4. Greater than 70% stenosis to near occlusion= ICA PSV > 230 cm/s: ratio > 4.0: ICA EDV > 100 cm/s. 5. Near occlusion= ICA PSV velocities may be low or undetectable: variable ratio and ICA EDV. 6. Total occlusion=unable to detect flow.
== END | disposition home or self-care (01) ==
LOC: RADUSWWP 07:02
PROVIDERS: ATTEND Family Medicine
DX: I65.23 Occlusion and stenosis of bilateral carotid arteries (principal); R07.9 Chest pain, unspecified
CPT/HCPCS: 93880

== ENCOUNTER → 2020-09-05 | Outpatient (CLI) | payer OTHER ==
--- NOTE | 2020-09-05 17:07 | US ---
EXAMINATION TYPE: US thyroid st tissue head/neck DATE OF EXAM: 09/05/2020 COMPARISON: Thyroid ultrasound 03/08/2019 and 08/06/2018 CLINICAL HISTORY: E04.2 Nontoxic multinodular goiter. follow up nodules. Not on thyroid meds. GLAND SIZE: Right Lobe: 4.2 x 2.2 x 1.8 cm Overall Parenchyma: homogenous Left Lobe: 4.4 x 2.0 x 1.5 cm Overall Parenchyma: homogeneous Isthmus Thickness: 0.4 cm NODULES RIGHT: # of nodules measured on right: Multiple subcentimeter nodules visualized. 2 largest nodules are as follows: 1. 1.0 X 0.8 x 0.7 cm hypoechoic mixed nodule at the mid lateral pole with well-defined margins. T his nodule is wider than tall and shows intranodular vascularity. No echogenic foci. Prior size: 0.9 x 0.7 x 0.7 cm 2. 0.9 X 0.8 x 0.6 cm hypoechoic mixed nodule at the mid upper pole with well-defined margins. This nodule is wider than tall and shows intranodular vascularity. No echogenic foci. Prior size: 0.8 x 0.7 x 0.5 cm LEFT: # of nodules measured on left: 1 1. 0.6 X 0.5 x 0.5 cm hypoechoic mixed nodule at the mid lateral pole with well-defined margins. T his nodule is wide as tall and shows intranodular vascularity. No echogenic foci. Prior size: 0.6 x 0.5 x 0.5 cm ISTHMUS: # of nodules measured in the isthmus: 0 Bilateral neck scanned, no evidence of lymphadenopathy. IMPRESSION: Unchanged bilateral thyroid TI-RADS 3 nodules measuring up to 1.0 cm.
== END | disposition home or self-care (01) ==
LOC: RADUSWWP 16:09
PROVIDERS: ATTEND Internal Medicine Endocrinology, Diabetes & Metabolism
DX: E04.2 Nontoxic multinodular goiter (principal)
CPT/HCPCS: 76536

== ENCOUNTER → 2021-10-18 | Outpatient (CLI) | payer OTHER, MEDICARE ==
[2021-10-18 16:39] LABS: T4, Free (Free Thyroxine) 1.32 ng/dL (0.78-2.19)
--- NOTE | 2021-10-18 23:22 | US ---
EXAMINATION TYPE: US thyroid st tissue head/neck DATE OF EXAM: 10/18/2021 COMPARISON: Prior thyroid ultrasound September 05, 2020 CLINICAL HISTORY: E04.2 Nontoxic multinodular goiter. Follow up thyroid nodules. GLAND SIZE: Right Lobe: 4.2 x 2.3 x 1.9 cm Overall Parenchyma: homogenous Left Lobe: 4.3 x 1.6 x 1.7 cm Overall Parenchyma: homogeneous Isthmus Thickness: 0.4 cm NODULES RIGHT: # of nodules measured on right: 2- multiple subcentimeter nodules, largest visualized 1. 1.0 X 0.9 x 0.7 cm, mid lateral, spongiform, hypoechoic nodule, which is wider than tall, with s mooth margins, without echogenic foci. Prior size: 1.0 x 0.8 x 0.7 cm 2. 0.8 X 0.8 x 0.6 cm, mid mid, spongiform, hypoechoic nodule, which is wider than tall, with dena h margins, without echogenic foci. Prior size: 0.9 x 0.8 x 0.6 cm LEFT: # of nodules measured on left: 1 1. 0.6 X 0.4 x 0.4 cm, medial, spongiform, hypoechoic nodule, which is wide as tall, with smooth ma rgins, without echogenic foci. Prior size: 0.6 x 0.5 x 0.5 cm ISTHMUS: # of nodules measured in the isthmus: 0 Bilateral neck scanned, no evidence of lymphadenopathy. Homogeneous normal-sized thyroid with stable small bilateral nodules as detailed above. IMPRESSION: As above
== END ==
LOC: RADUSWWP 15:16
PROVIDERS: ATTEND Internal Medicine Endocrinology, Diabetes & Metabolism
DX: E04.2 Nontoxic multinodular goiter (principal)
CPT/HCPCS: 76536; 84439; 84443

== ENCOUNTER → 2022-03-06 | Outpatient (CLI) | payer MEDICARE ==
--- NOTE | 2022-03-06 11:03 | USB ---
Reason for exam: additional evaluation requested from abnormal screening. History: Patient is postmenopausal. Benign US right guided mammotome of the right breast, May 09, 2008. Physical Findings: A clinical breast exam by your physician is recommended on an annual basis and results should be correlated with mammographic findings. US Breast Workup Limited RT Technologist: Soo Benitez Right limited breast ultrasound including focal area of concern, retroareolar and axilla demonstrates a 0.6 x 0.7 x 0.2cm oval lesion at 6 o'clock, 3cm from nipple, likely mammographic correlate. Scanned 5-7 o'clock. Results were given to the patient verbally at the time of the exam. ASSESSMENT: Probably benign, BI-RAD 3 RECOMMENDATION: Follow-up diagnostic mammogram of the right breast in 6 months.
== END | disposition home or self-care (01) ==
LOC: RADUSWWP 10:21
PROVIDERS: ATTEND Obstetrics & Gynecology
DX: R92.8 Other abnormal and inconclusive findings on diagnostic imaging of breast (principal); Z78.0 Asymptomatic menopausal state

== ENCOUNTER → 2022-03-12 | Outpatient (CLI) | payer MEDICARE ==
--- NOTE | 2022-03-12 12:08 | BD ---
EXAMINATION TYPE: Axial Bone Density DATE OF EXAM: 03/12/2022 COMPARISON: 12/29/2016 CLINICAL HISTORY: 66 years year old Female. ICD-10 CODE: Z78.0 POSTMENOPAUSAL STATUS Height: 63.7 IN Weight: 187 LBS FRAX RISK QUESTIONS: Current Tobacco Use: YES RISK FACTORS HISTORY OF: History of Wrist Fracture: LT WRIST FX AGE 46 Surgery to Spine: YES L SPINE SURGERY 10 YEARS Active: YES Diet low in dairy products/other sources of calcium: YES Postmenopausal woman: PARTIAL HYST AGE 51 MEDICATIONS: Osteoporosis Medications: NOT NOW Which medication: Fosamax How Lon YEARS Additional Medications: VITAMIN D, NORVASC, NORCO, KLOR-CON, HCTZ, IBS MED, DIZZYNESS MEDS, CHOLESTER OL MEDS, GARLIC, COQ10, RED RICE YEAST,KRILL OIL, MULTI VIT, ASPIRIN, EXAM MEASUREMENTS: Bone mineral densitometry was performed using the [employer] System. L SPINE SURGERY Bone mineral density about the R hip (g/cm2): 0.848 Bone mineral density about the L hip (g/cm2): 0.779 T Score values are as follows: -----R Neck: -1.4 -----L Neck: -1.9 -----R Total: -1.1 -----L Total: -1.1 Bone mineral density has: Decreased -0.2% since study of: 12/29/2016 Bone mineral density about the R Wrist (g/cm2): 0.619 T Score values are as follows: -----Dist. R+U: -2.6 -----Prox. R+U: -0.2 -----Radius total: -0.9 Bone mineral density BASELINE FRAX%s: The graph provided illustrates a 10.2 chance for a major osteoporotic fx and a 2.3 chance for the hips probability for fx in 10 years time. IMPRESSION: Osteopenia NOTE: T-SCORE=SD OF THE YOUNG ADULT MEAN.
== END | disposition home or self-care (01) ==
LOC: RADBDWWP 11:18
PROVIDERS: ATTEND Obstetrics & Gynecology
DX: M85.80 Other specified disorders of bone density and structure, unspecified site (principal)
CPT/HCPCS: 77080

== ENCOUNTER → 2022-04-09 | Outpatient (CLI) | payer MEDICARE ==
--- NOTE | 2022-04-09 16:47 | US ---
EXAMINATION TYPE: US venous doppler duplex LE LT DATE OF EXAM: 04/09/2022 4:34 PM COMPARISON: NONE CLINICAL HISTORY: R60.0 LOCALIZED EDEMA. Left leg swelling x 3 weeks SIDE PERFORMED: Left TECHNIQUE: The lower extremity deep venous system is examined utilizing real time linear array sonog mainor with graded compression, doppler sonography and color-flow sonography. VESSELS IMAGED: Common Femoral Vein Deep Femoral Vein Greater Saphenous Vein * Femoral Vein Popliteal Vein Small Saphenous Vein * Proximal Calf Veins (* superficial vessels) Left Leg: Negative for DVT Grayscale, color doppler, spectral doppler imaging performed of the deep veins of the left lower extr emity. There is normal flow, compressibility, vascular waveforms. IMPRESSION: No ultrasound evidence for acute DVT in the left lower extremity.
== END | disposition home or self-care (01) ==
LOC: RADUSWWP 16:13
PROVIDERS: ATTEND Family Medicine
DX: R60.0 Localized edema (principal); M79.89 Other specified soft tissue disorders

== ENCOUNTER → 2022-09-16 | Outpatient (CLI) | payer MEDICARE ==
--- NOTE | 2022-09-16 16:23 | MR ---
EXAMINATION TYPE: MR brain wo/w con DATE OF EXAM: 09/16/2022 COMPARISON: MR brain 06/18/2016. HISTORY: Headache TECHNIQUE: Multiplanar, multisequence images of the brain and brainstem is performed without and with IV contras t, utilizing 8.5 mL intravenous Gadavist . FINDINGS: Diffusion weighted images demonstrate no evidence of a recent infarct or other diffusion ab normality. There is no extra-axial fluid collection. Redemonstration of scattered T2/flair hyperinte nsities within the subcortical and periventricular white matter. There is increase in number without significant increase in size of the lesions are prior examination. There may be up to 75 lesions iden tified. Largest lesion essentially within the posterior right frontal lobe medially measuring up to 8 mm (series 601, image 27). None of these lesions demonstrate contrast enhancement. The ventricular system and cisternal spaces are normal in size and appearance. The brain volume is age appropriate. Midline structures demonstrate normal morphology. The craniocervical junction appears within normal limits. Post contrast images demonstrate no abnormal enhancement. The dural venous sinuses appear pa tent. The visualized sinuses are clear and the globes are intact. IMPRESSION: Multiple periventricular and subcortical white matter foci demonstrated and increased from prior exam ination in 2016. None of these demonstrate contrast enhancement. This is favored to represent chronic small vessel ischemic change however multiple sclerosis or altered perfusion related to migraines is not included.
== END | disposition home or self-care (01) ==
LOC: RADMRIMAIN 12:28
PROVIDERS: ATTEND Family Medicine
DX: R51.9 Headache, unspecified (principal)
CPT/HCPCS: 70553; A9585

== ENCOUNTER → 2022-09-16 | Outpatient (CLI) | payer MEDICARE ==
--- NOTE | 2022-09-16 10:50 | MM ---
Reason for Exam: Follow-up at short interval from prior study. Last screening mammogram was performed 6 month(s) ago. Patient History: Menarche at age 18. First Full-Term at age 22. Hysterectomy at age 45. Postmenopausal. 05/09/2008, Benign Core Biopsy on the right side. Risk Values: Avani 5 year model risk: 1.6%. NCI Lifetime model risk: 5.8%. Prior Study Comparison: 03/02/2018 Bilateral Screening Mammogram, [facility]. 06/08/2019 Bilateral Screening Mammogram, [facility]. 02/25/2022 Bilateral Screening Mammogram, [facility]. Tissue Density: Right: There are scattered fibroglandular densities. Findings: Analyzed By CAD. Previous mammotome biopsy clip in the right breast. No new worrisome cluster microcalcifications. Increased size of circumscribed oval mass in the anterior right breast lower inner quadrant measuring 7 mm. Additional mass in the lower inner right breast measuring up to 6 mm at middle depth. Overall Assessment: Incomplete: need additional imaging evaluation, BI-RAD 0 Management: Diagnostic Breast Ultrasound of the right breast. A clinical breast exam by your physician is recommended on an annual basis and results should be correlated with mammographic findings. This exam should not preclude additional follow-up of suspicious palpable abnormalities. Results were given to the patient verbally at the time of exam. Electronically signed and approved by: Uri Amador D.O.
--- NOTE | 2022-09-16 11:17 | USB ---
Reason for Exam: Follow-up at short interval from prior study. Patient History: Menarche at age 18. First Full-Term at age 22. Hysterectomy at age 45. Postmenopausal. 05/09/2008, Benign Core Biopsy on the right side. Risk Values: Avani 5 year model risk: 1.6%. NCI Lifetime model risk: 5.8%. Technique: Method: Targeted. Prior Study Comparison: 03/02/2018 Bilateral Screening Mammogram, [facility]. 06/08/2019 Bilateral Screening Mammogram, [facility]. 02/25/2022 Bilateral Screening Mammogram, [facility]. Findings: The lower inner quadrant of the right breast, the axilla of the right breast and the retroareolar of the right breast were scanned. Targeted ultrasound of the right breast from 3-6 o'clock was performed with evaluation of the nipple and axilla. There is an anechoic lobulated cyst in the right breast at 6:00 3 cm from the nipple without internal color flow measuring 0.6 x 0.4 x 0.7 cm. Additional ovoid anechoic cyst in the right breast at 5:00 5 cm from the nipple measuring 0.6 x 0.2 x 0.6 cm.. Overall Assessment: Probably benign, BI-RAD 3 Management: Diagnostic Mammogram of both breasts in 6 months. A clinical breast exam by your physician is recommended on an annual basis and results should be correlated with mammographic findings. This exam should not preclude additional follow-up of suspicious palpable abnormalities. ??Results were given to the patient verbally at the time of exam. Electronically signed and approved by: Uri Amador D.O.
== END | disposition home or self-care (01) ==
LOC: RADMAMWWP 10:22
PROVIDERS: ATTEND Obstetrics & Gynecology
DX: R92.8 Other abnormal and inconclusive findings on diagnostic imaging of breast (principal)
CPT/HCPCS: 77065; 76642; G0279; 77061

== ENCOUNTER → 2022-10-31 | Outpatient (CLI) | payer MEDICARE ==
--- NOTE | 2022-11-01 09:05 | US ---
EXAMINATION TYPE: US thyroid st tissue head/neck DATE OF EXAM: 10/31/2022 COMPARISON: NONE CLINICAL HISTORY: E04.2 NONTOXIC MULTINODULAR GOITER. Thyroid nodules. GLAND SIZE: Right Lobe: 5.1 x 2.1 x 2.2 cm Overall Parenchyma: homogenous Left Lobe: 4.7 x 1.4 x 1.9 cm Overall Parenchyma: homogeneous Isthmus Thickness: .4 cm NODULES RIGHT: # of nodules measured on right: 1 largest. 1. 1.2 X .9 x 1.0 cm, mid lateral, solid or almost completely solid, hypoechoic nodule, which is wi sky than tall, with smooth margins, without echogenic foci. Prior size: .8 x .6 x .8 cm LEFT: # of nodules measured on left: Subcentimeter. ISTHMUS: # of nodules measured in the isthmus: 0 Bilateral neck scanned, no evidence of lymphadenopathy. IMPRESSION: Nonspecific right-sided nodule with slight interval enlargement.
== END | disposition home or self-care (01) ==
LOC: RADUSWWP 16:33
PROVIDERS: ATTEND Internal Medicine Endocrinology, Diabetes & Metabolism
DX: E04.1 Nontoxic single thyroid nodule (principal)
CPT/HCPCS: 76536

== ENCOUNTER → 2023-03-17 | Outpatient (CLI) | payer MEDICARE ==
--- NOTE | 2023-03-17 13:06 | MM ---
Reason for Exam: Follow-up at short interval from prior study. Last screening mammogram was performed 12 month(s) ago. Patient History: Menarche at age 18. First Full-Term at age 22. Hysterectomy at age 45. Postmenopausal. 05/09/2008, Benign Core Biopsy on the right side. Risk Values: Avani 5 year model risk: 1.6%. NCI Lifetime model risk: 5.8%. Prior Study Comparison: 12/24/2016 Bilateral Screening Mammogram, [facility]. 03/02/2018 Bilateral Screening Mammogram, [facility]. 06/08/2019 Bilateral Screening Mammogram, [facility]. 02/25/2022 Bilateral Screening Mammogram, [facility]. 09/16/2022 Right MG 3D diag mammo w/cad RT, [facility]. Tissue Density: There are scattered fibroglandular densities. Findings: Analyzed By CAD. Stable nodular densities right breast. No spiculated masses. No suspicious calcifications. Overall Assessment: Benign, BI-RAD 2 Management: Screening Mammogram of both breasts in 1 year. A clinical breast exam by your physician is recommended on an annual basis and results should be correlated with mammographic findings. This exam should not preclude additional follow-up of suspicious palpable abnormalities. Results were given to the patient verbally at the time of exam. Electronically signed and approved by: Al Hargrove M.D. Radiologis
== END | disposition home or self-care (01) ==
LOC: RADMAMWWP 08:28
PROVIDERS: ATTEND Family Medicine
DX: N60.01 Solitary cyst of right breast (principal); Z78.0 Asymptomatic menopausal state
CPT/HCPCS: 77066; G0279; 77062

== ENCOUNTER → 2023-05-25 | Outpatient (CLI) | payer MEDICARE ==
--- NOTE | 2023-05-25 10:32 | XR ---
EXAMINATION TYPE: XR lumbosacral spine min 4V DATE OF EXAM: 05/25/2023 COMPARISON: None HISTORY: Lumbar degenerative disc disease chronic low back pain TECHNIQUE: 5 view lumbar spine FINDINGS: There is a scoliosis present with the convexity to the right centered at approximately L2. T12 ribs appear to be rudimentary. There are 5 lumbar-type vertebral bodies. The pedicles are intact. Disc heights are noted L1-L2, L2-3 are otherwise unremarkable. IMPRESSION: 1. Degenerative disc changes and scoliosis.
== END | disposition home or self-care (01) ==
LOC: RADXRMAIN 09:46
PROVIDERS: ATTEND Physical Medicine & Rehabilitation
DX: M51.36 Other intervertebral disc degeneration, lumbar region (principal); M41.9 Scoliosis, unspecified
CPT/HCPCS: 72110

== ENCOUNTER → 2023-09-21 | Outpatient (CLI) | payer MEDICARE ==
[2023-09-21 16:17] LABS: ALT 18 U/L (8-44); AST 17 U/L (13-35); Albumin 4.8 d/dL (3.8-4.9); Alkaline Phosphatase 47 U/L (41-126); BUN/Creat Ratio 15.33 Ratio (12.00-20.00); Bilirubin, Conjugated <0.20 mg/dL (0.20-0.40); Bilirubin,Unconjugated >0.10 mg/dL (0.20-1.00); Blood Urea Nitrogen 13.8 mg/dL (9.0-27.0); Calcium 10.8 mg/dL (8.7-10.3); Carbon Dioxide 24.6 mmol/L (21.6-31.8); Chloride 101 mmol/L (96-109); Chol/HDL Ratio 2.88 Ratio; Globulin 2.4 d/dL (1.6-3.3); Glucose 106 mg/dL (70-110); LDL Cholesterol,Calculated 93.1 mg/dL (0.0-131.0); Potassium 3.5 mmol/L (3.5-5.5); Sodium 141 mmol/L (135-145); T4, Free (Free Thyroxine) 1.33 ng/dL (0.80-1.80); Total Bilirubin 0.3 mg/dL (0.3-1.2); Total Protein 7.2 d/dL (6.2-8.2)
[2023-09-21 16:22] LABS: Basophils # (A) 0.06 X 10*3/uL (0.00-0.10); Basophils % (A) 0.7 %; Eosinophils # (A) 0.07 X 10*3/uL (0.04-0.35); Eosinophils % (A) 0.8 %; HCT 42.4 % (37.2-46.3); HGB 13.6 d/dL (12.0-15.0); Lymphocytes # (A) 1.73 X 10*3/uL (0.90-5.00); Lymphocytes % (A) 19.4 %; MCH 27.1 pg (27.0-32.0); MCHC 32.1 d/dL (32.0-37.0); MCV 84.5 FL (80.0-97.0); Mean Platelet Volume 10.6 FL (9.5-12.2); Monocytes # (A) 0.61 X 10*3/uL (0.20-1.00); Monocytes % (A) 6.8 %; NRBC Per 100 WBC 0 X 10*3/uL (0.00-0.01); Neutrophils # (A) 6.43 X 10*3/uL (1.80-7.70); Neutrophils % (A) 72.1 %; Platelet Count 328 X 10*3/uL (140-440); RBC 5.02 X 10*6/uL (4.10-5.20); RDW 14.3 % (11.5-14.5); WBC 8.92 X 10*3/uL (4.50-10.00)
== END | disposition home or self-care (01) ==
LOC: LABWHC1 10:10
PROVIDERS: ATTEND Family Medicine
DX: Z00.01 Encounter for general adult medical examination with abnormal findings (principal); E78.2 Mixed hyperlipidemia; E04.1 Nontoxic single thyroid nodule
CPT/HCPCS: 36415; 80048; 80061; 80076; 84439; 84443; 84480; 85025

== ENCOUNTER → 2023-10-06 | Outpatient (CLI) | payer MEDICARE ==
--- NOTE | 2023-10-06 11:08 | XR ---
EXAMINATION TYPE: XR knee complete RT DATE OF EXAM: 10/06/2023 COMPARISON: NONE HISTORY: Pain TECHNIQUE: Frontal, lateral and oblique images of the right knee are obtained. FINDINGS: There is no acute fracture/dislocation evident. Minimal tricompartmental joint space narro wing with marginal spurring. The overlying soft tissue appears unremarkable. IMPRESSION: 1. No acute fracture or dislocation. 2. Minimal osteoarthritic changes.
== END | disposition home or self-care (01) ==
LOC: RADXRMAIN 10:18
PROVIDERS: ATTEND Nurse Practitioner Family
DX: M17.11 Unilateral primary osteoarthritis, right knee (principal)

== ENCOUNTER → 2023-12-07 | Outpatient (CLI) | payer MEDICARE ==
[2023-12-07 16:35] LABS: T4, Free (Free Thyroxine) 1.2 ng/dL (0.80-1.80)
== END | disposition home or self-care (01) ==
LOC: LABWHC1 10:04
PROVIDERS: ATTEND Internal Medicine Endocrinology, Diabetes & Metabolism
DX: E04.2 Nontoxic multinodular goiter (principal)
CPT/HCPCS: 36415; 84439; 84443

== ENCOUNTER → 2023-12-29 | Outpatient (CLI) | payer MEDICARE ==
--- NOTE | 2023-12-29 12:01 | US ---
EXAMINATION TYPE: US thyroid st tissue head/neck DATE OF EXAM: 12/29/2023 COMPARISON: US 2021 CLINICAL INDICATION: Female, 68 years old with history of E04.2 NONTOXIC MULTINODULAR GOITER; GLAND SIZE: Right Lobe: 5.4 x 1.6 x 2.6 cm Overall Parenchyma: heterogenous Left Lobe: 4.8 x 1.7 x 1.9 cm Overall Parenchyma: heterogenous Isthmus Thickness: 0.3 cm NODULES RIGHT: # of nodules measured on right: 2 1. 1.5 X 1.1 x 1.2 cm, mid lateral, mixed cystic and solid, hypoechoic nodule, which is wider than tall, with smooth margins, without echogenic foci. Prior size: 1.2 x 0.9 x 1.0 cm 2. 0.9 X 0.7 x 0.9 cm, mid, mixed cystic and solid, hypoechoic nodule, which is wider than tall, wi th smooth margins, without echogenic foci. Prior size: no previous measurements LEFT: # of nodules measured on left: 0 ISTHMUS: # of nodules measured in the isthmus: 0 Bilateral neck scanned, no evidence of lymphadenopathy. Multiple bilateral nodules with largest 2 measured left lobe IMPRESSION: Mildly Suspicious: FNA if ? 2.5 cm; Follow if ? 1.5 cm at 1, 3, and 5 y 2017 ACR TI-RADS LEVEL: TR3 *Highest TI-RADS level nodule reported
== END | disposition home or self-care (01) ==
LOC: RADUSWWP 10:51
PROVIDERS: ATTEND Internal Medicine Endocrinology, Diabetes & Metabolism
DX: E04.2 Nontoxic multinodular goiter (principal)
CPT/HCPCS: 76536

== ENCOUNTER → 2024-03-09 | Outpatient (CLI) | payer MEDICARE ==
--- NOTE | 2024-03-09 12:24 | XR ---
EXAMINATION TYPE: XR cervical spine limited DATE OF EXAM: 03/09/2024 COMPARISON: None HISTORY: Prior surgery TECHNIQUE: 3 views cervical spine FINDINGS: Anterior cervical fusion present at C4-C6. There is loss of disc height C3-4. Retrolisthesis of C3 on C4 is present. Vertebral body alignment is otherwise preserved. Degenerative disc changes are present at C6-7 and C7-T1. Posterior spinal lamel lar line is intact. Odontoid is obscured by overlying axilla and occiput. Note is made of bilateral carotid artery calcifications. IMPRESSION: 1. Grade 1 retrolisthesis of C3 on C4. 2. Postsurgical changes. 3. Degenerative disc changes throughout the cervical spine
== END | disposition home or self-care (01) ==
LOC: RADXRMAIN 11:47
PROVIDERS: ATTEND Family Medicine
DX: M47.812 Spondylosis without myelopathy or radiculopathy, cervical region (principal); M43.12 Spondylolisthesis, cervical region; M50.323 Other cervical disc degeneration at C6-C7 level
CPT/HCPCS: 72040

== ENCOUNTER 2024-07-13 14:41 | Emergency (ER) | payer MEDICARE ==
[2024-07-13] MEDS ORDERED: ACETAMINOPHEN TAB 500 MG TAB ONE (19:50)
[2024-07-13] MEDS ORDERED: SODIUM CHLORIDE 0.9% 1,000 ML BAG ONE (20:05)
--- NOTE | 2024-08-04 09:27 | CT ---
Tiffany Olea ID: [id number] : 1955 EXAMINATION TYPE: CT abdomen pelvis wo con DATE OF EXAM: 07/13/2024 COMPARISON: None HISTORY: 69-year-old female right flank pain CT DLP: 520.1 mGycm. Automated exposure control for dose reduction was used. TECHNIQUE: Contiguous axial scanning of the abdomen and pelvis without IV contrast. Coronal and sagit fabrizio reconstructions performed. FINDINGS: The heart is normal size without pericardial effusion. Small hiatal hernia. Strandy atelectasis/scarr ing in the lower lungs. Noncontrast appearance of the liver, adrenal glands, spleen, pancreas and no gross abnormality. Airam cystectomy clips. 2.1 cm hypodense cortical lesion posterior mid right kidney probably a cyst. There is a 8 mm calcific ation medial mid left kidney and 3 mm calcification anterior left mid kidney. No hydronephrosis on ei ther side. No dilated small bowel, free fluid, or free air. No mesenteric or retroperitoneal lymphadenopathy. Moderate prostatic calcifications abdominal aorta and common iliac arteries. Normal appendix. Scattered [id number] stool. Left-sided colonic diverticulosis, greatest in the proximal to mid sigmoid colon. No pericolonic inflammatory change. Redundant mid to distal sigmoid c olon. Pelvic floor relaxation. Uterus surgically absent. Bladder underdistended. Both ovaries are visualize d. No abnormal fluid collection in the pelvis or pelvic lymphadenopathy. Bones: Degenerative dextro convex scoliosis lumbar spine. IMPRESSION: 1. Left-sided nephrolithiasis with a nonobstructive 8 mm and 3 mm stone. No ureteral stone or obstru ctive uropathy. 2. A 2.1 cm benign cortical cyst mid right kidney. 3. Left-sided colonic diverticulosis greatest in the sigmoid colon without evidence for acute divert iculitis. 4. Pelvic floor relaxation. Status post hysterectomy.
== END 2024-07-13 22:44 | disposition home or self-care (01) ==
LOC: EC 14:41
CPT/HCPCS: 74176; 96360; 99284

== ENCOUNTER → 2025-01-17 | Outpatient (CLI) | payer MEDICARE ==
--- NOTE | 2025-01-17 12:29 | US ---
EXAMINATION TYPE: US thyroid st tissue head/neck DATE OF EXAM: 01/17/2025 COMPARISON: 12/29/23 CLINICAL INDICATION: Female, 69 years old with history of E04.2 NONTOXIC MULTINODULAR GOITER; TECHNIQUE: Grayscale and color Doppler imaging of the thyroid gland. FINDINGS: GLAND SIZE: Right Lobe: 4.8 x 2.1 x 2.1 cm Overall Parenchyma: homogeneous Left Lobe: 4.2 x 1.9 x 1.5 cm Overall Parenchyma: heterogeneous Isthmus Thickness: 0.3 cm NODULES RIGHT: # of nodules measured on right: 2 1. 1.5 X 1.0 x 1.2 cm, mid lateral, mixed cystic and solid, hypoechoic nodule, which is wider than tall, with smooth margins, without echogenic foci. TR 3 Prior size: 1.5 x 1.2 x 1.1 cm 2. 0.9 X 1.0 x 0.7 cm, mid mid, solid or almost completely solid, hypoechoic nodule, which is wider than tall, with lobulated or irregular margins, without echogenic foci. TR 4 Prior size: 0.9 x 0.9 x 0.7 cm LEFT: # of nodules measured on left: 0 ISTHMUS: # of nodules measured in the isthmus: 0 Bilateral neck scanned, no evidence of lymphadenopathy. IMPRESSION: Mildly suspicious nodules. Follow-up in one year recommended. 2017 ACR TI-RADS LEVEL: TI-RADS 4 - Moderately Suspicious: Follow if > 1 cm, FNA if > 1.5 cm *Highest TI-RADS level nodule reported [email or web address] [facility], , 01/17/2025 12:26 PM
== END | disposition home or self-care (01) ==
LOC: RADUSWWP 11:05
PROVIDERS: ATTEND Family Medicine
DX: E04.2 Nontoxic multinodular goiter (principal)
CPT/HCPCS: 76536

== ENCOUNTER → 2025-01-31 | Outpatient (CLI) | payer MEDICARE ==
--- NOTE | 2025-01-31 16:24 | MR ---
EXAMINATION TYPE: MR brain wo/w con DATE OF EXAM: 01/31/2025 4:16 PM COMPARISON: 09/16/2022. CLINICAL INDICATION: Female, 69 years old with history of R20.0 ANESTHESIA OF SKIN; PHH, Headaches, D izziness, Weakness both sides, Numbness of face TECHNIQUE: Multi planar, multi sequence imaging was performed through the brain including: T1, T2, In version recovery, susceptibility weighted imaging and gradient echo imaging and Diffusion weighted im aging. The patient was then given intravenous contrast and multi planar, T1 fat-saturation images wer e obtained. IV Contrast: 7 mL Gadobutrol FINDINGS: The zaman-white junctions, ventricular system, basal cisterns appear unremarkable. Diffusion-weighted imaging shows no evidence of restricted diffusion to suggest acute/subacute infarct. Intracranial ar terial flow voids are maintained. Midline structures show no abnormality. Scattered foci of high T2 s ignal intensity are seen within the periventricular white matter. The susceptibility weighted images do not reveal any evidence for micro-hemorrhage. After administration of gadolinium, no abnormal enha ncement is seen. Facial nerves are without abnormal postcontrast enhancement. The bone marrow signal is within normal limits. Paranasal sinuses and mastoid air cells: No significant paranasal sinus disease. Visualized orbits: Orbital contents are intact. IMPRESSION: 1. No evidence of intracranial mass, acute/subacute infarct, or abnormal enhancement. 2. Nonspecific white matter changes, likely related to small vessel ischemic disease. [facility], , 01/31/2025 4:22 PM
== END | disposition home or self-care (01) ==
LOC: RADMRIMAIN 15:33
PROVIDERS: ATTEND Family Medicine
DX: R90.82 White matter disease, unspecified (principal); R20.0 Anesthesia of skin
CPT/HCPCS: 70553; A9585

== ENCOUNTER → 2025-03-15 | Outpatient (CLI) | payer MEDICARE ==
--- NOTE | 2025-03-15 08:29 | MR ---
INDICATION: Patient age:Female; 69 years old; Reason for study: M54.81 Occipital neuralgia; I65.29 OCCLUSION AND S; PHH. COMPARISON: MRI brain 01/31/2025, MR cervical spine 08/12/2018, 08/01/2016, MR C-spine/L-spine 07/25/2016, CT brain C-spine 04/30/2016, cervical spine radiograph 03/09/2024. TECHNIQUE: Multi planar, multi sequence imaging was performed of the cervical spine. No Gadolinium wa s given. FINDINGS: Alignment: The cervical vertebral bodies have preserved heights. Grade 1 retrolisthesis of C3 on C4. Grade 1 anterolisthesis of C6 on C7 and C7 on T1. Bones: Postsurgical changes from ACDF C4-C6. Hardware creates susceptibility artifact which limits ev aluation. Multilevel anterior osteophytosis. No abnormal STIR signal. Cord: The spinal cord is unremarkable with regards to their signal intensity and morphology. Discs: Intervertebral disc signal is maintained. C2-C3: Eccentric right disc bulge. Uncovertebral joint hypertrophy. No significant central canal sten osis. Bilateral facet arthropathy. No significant left neural foraminal stenosis. Mild right neural f oraminal stenosis. C3-C4: Posterior disc osteophyte complex with moderate central canal stenosis and abutment of the crissy tral spinal cord. Uncovertebral joint hypertrophy. Bilateral facet arthropathy. Moderate left and se rayne right neural foraminal stenosis. C4-C5: Postsurgical changes. No disc herniation. No significant central canal stenosis. Uncovertebral joint hypertrophy resulting in moderate bilateral neuroforaminal stenosis. C5-C6: Postsurgical changes. No disc herniation. No significant central canal stenosis. Uncovertebral joint hypertrophy resulting in moderate bilateral neuroforaminal stenosis. C6-C7: Posterior disc osteophyte complex with uncovertebral joint hypertrophy. Results in mild centra l canal stenosis. Severe left and mild right neural foraminal stenosis. C7-T1: Posterior disc osteophyte complex with mild central canal stenosis. Uncovertebral joint hypert rophy with mild to moderate bilateral neural foraminal stenosis. Other: None. IMPRESSION: 1. Postsurgical changes ACDF C4-C6 with moderate multilevel disc degeneration and associated osteoart hritic changes as described above. Prominent posterior disc osteophyte complexes above and below the surgical fusion resulting in at least mild to moderate central canal stenosis. 2. Grade 1 retrolisthesis of C3 on C4. Grade 1 anterolisthesis of C6 on C7 and C7 on T1. [facility], , 03/15/2025 8:27 AM
--- NOTE | 2025-03-15 08:33 | US ---
EXAMINATION TYPE: US carotid duplex BILAT DATE OF EXAM: 03/15/2025 COMPARISON: US 2018, thyroid ultrasound 01/17/2025 CLINICAL INDICATION: Female, 69 years old with history of M54.81 Occipital neuralgia; I65.29 OCCLUSIO N AND S; TECHNIQUE: Grayscale, color Doppler and spectral Doppler evaluation of the bilateral carotid systems and vertebral arteries. Indirect Doppler criteria was utilized. FINDINGS: EXAM MEASUREMENTS: RIGHT: Peak Systolic Velocity (PSV) cm/sec ----- Right CCA: 74.3 ----- Right ICA: 101.3 ----- Right ECA: 86.0 ICA/CCA ratio: 1.4 RIGHT: End Diastole cm/sec ----- Right CCA: 23.7 ----- Right ICA: 47.2 ----- Right ECA: 17.7 LEFT: Peak Systolic Velocity (PSV) cm/sec ----- Left CCA: 80.9 ----- Left ICA: 86.4 ----- Left ECA: 84.2 ICA/CCA ratio: 1.1 LEFT: End Diastole cm/sec ----- Left CCA: 32.5 ----- Left ICA: 36.2 ----- Left ECA: 16.0 VERTEBRALS (direction of flow): Right Vertebral: Antegrade Left Vertebral: Antegrade Rhythm: Normal Right thyroid - 1.6 x 1.2 x 1.3cm hypoechoic complex nodule. Relatively stable from prior exams. IMPRESSION: Mild atheromatous plaquing with no sonographically evident hemodynamically significant stenosis. Criteria for Assigning % of Stenosis / Diameter reduction (Estimation based on the indirect measurements of the internal carotid artery velocities (ICA PSV). 1. Normal (no stenosis)=ICA PSV < 180 cm/s: ratio < 2.0: ICA EDV<40 cm/s. 2. Less than 50% stenosis=ICA PSV < 180 cm/s: ratio < 2.0: ICA EDV<40 cm/s. 3. 50 to 69% stenosis=ICA PSV of 180 to 230 cm/s: ration 2.0 ? 4.0: ICA EDV 40-100 cm/s. PSV 125-180 cm/sec and ICA/CCA PSV Ratio ? 2.0 is also consistent with 50-69% stenosis 4. Greater than 70% stenosis to near occlusion= ICA PSV > 230 cm/s: ratio > 4.0: ICA EDV > 100 cm/s. 5. Near occlusion= ICA PSV velocities may be low or undetectable: variable ratio and ICA EDV. 6. Total occlusion=unable to detect flow. [facility], , 03/15/2025 8:30 AM
== END | disposition home or self-care (01) ==
LOC: RADMRIMAIN 06:53
PROVIDERS: ATTEND Family Medicine
DX: M48.02 Spinal stenosis, cervical region (principal); M50.321 Other cervical disc degeneration at C4-C5 level; I65.29 Occlusion and stenosis of unspecified carotid artery; M25.78 Osteophyte, vertebrae; M43.12 Spondylolisthesis, cervical region; Z98.1 Arthrodesis status
CPT/HCPCS: 72141; 93880